=== PATIENT | female | born 1990 | race Caucasian/White ===

== ENCOUNTER 2020-04-11 05:39 | Emergency (ER) | payer BC ==
[2020-04-11 06:19] VITALS: BP 111/58; PULSE 74
[2020-04-11] MEDS ORDERED: Clindamycin HCl 150 MG Cap PO ONE (06:32)
--- NOTE | 2020-04-11 06:39 | EDM.PDOC ---
ED HPI GENERAL MEDICAL PROBLEM - General Chief Complaint: ENT Problem Stated Complaint: INFECTED TOOTH Time Seen by Provider: 04/11/20 06:19 - History of Present Illness INITIAL COMMENTS - FREE TEXT/NARRATIVE: History of present illness: [] Patient has a toothache that was severe week ago. She started amoxicillin and later had Flagyl added. The pain went away. She has swelling now in the left side of the jaw that comes under the left side of the chin and is firm and painful. She has no trismus ptyalism or difficulty with speech. She has no airway embarrassment. She is not . Patient is told that the oral surg cindy in town next her dentist is out of town this week. The patient has no systemic signs of infection. Review of systems: As per history of present illness and below otherwise all systems reviewed and negative. Past medical history: As per history of present illness and as reviewed below otherwise noncontributory. Surgical history: As per history of present illness and as reviewed below otherwise noncontributory. Social history: No reported history of drug or alcohol abuse. Family history: As per history of present illness and as reviewed below otherwise noncontributory. Physical exam: Constitutional - well developed, well-nourished and in no acute distress HEENT - normocephalic, no evidence of trauma - external nose and mouth normal - no mass in neck and no JVD - mucosae moist. No swelling externally from the angle of the left side of the jaw to the anterior part of the left side of the jaw and under same. It is tender. Under the sublingual gland there is no swelling. There is nothing that crosses the midline. The patient has a supple neck. The patient has normal voice and no trismus. EYES - full EOM, PERRL, no icterus - no evidence of inflammation, injection, or drainage Respiratory - no respiratory distress, equal bilateral expansion, lungs clear to auscultation and no abnormal lung sounds Cardiovascular - Regular Rhythm with S1 and S2 appreciated and no murmur, gallop or rub. GI - abdomen soft without distension or organomegaly - normal bowel sounds - no guard or rebound Musculoskeletal no gross deformity of long bones or joints - no tenderness, swelling or edema Neurologic - Alert and oriented times four - CN II-XII grossly intact - motor sensory and coordination symmetrically normal Psychiatric - appropriate mood and affect with normal thought content Hematologic - No petechiae or purpura - mucosa appropriate color and sclera not pale - normal nail bed color and refill Integument - no rash or evidence of trauma - normal turgor Diagnostics: [] Therapeutics: [] Impression: [] Plan: [] Definitive disposition and diagnosis as appropriate pending reevaluation and review of above. Treatments OCEANOLOGIST: Reports: Acetaminophen, Other Medication(s) denies pain at this time Pain Score (Numeric/FACES): 0 - Related Data Allergies Allergy/AdvReac Type Severity Reaction Status Date / Time No Known Allergies Allergy Verified 12/08/14 14:57 Home Meds: Home Meds Amoxicillin 500 mg PO TID 04/11/20 [History] Hydrocodone/Acetaminophen [Hydrocodone-Acetamin 5-325 mg] PRN 04/11/20 [History] clindamycin HCL [Cleocin] 600 mg PO Q8H #30 cap 04/11/20 [Rx] metroNIDAZOLE [Metronidazole] 500 mg PO BID 04/11/20 [History] Past Medical History - Past Health History Medical/Surgical History: Denies Medical/Surgical History Psychiatric History: Reports: None Hematologic History: Reports: None Other Dermatologic History: skin grafts related to MRSA infection - Infectious Disease History Infectious Disease History: Reports: MRSA Social & Family History - Family History Family Medical History: Noncontributory - Tobacco Use Smoking Status *Q: Current Every Day Smoker Years of Tobacco use: 15 Packs/Tins Daily: 0.5 - Caffeine Use Caffeine Use: Reports: Coffee, Soda - Recreational Drug Use Recreational Drug Use: No ED ROS ENT - Review of Systems Review Of Systems: Comprehensive ROS is negative, except as noted in HPI. ED EXAM, ENT - Physical Exam Exam: See Below Text/Narrative:: My physical exam as in my H&P Course - Vital Signs Last Recorded V/S: Last Vital Signs Temp 98.5 F 04/11/20 06:14 Pulse 74 04/11/20 06:14 Resp 18 04/11/20 06:14 BP 111/58 L 04/11/20 06:14 Pulse Ox 98 04/11/20 06:14 - Orders/Labs/Meds Meds: Medications Discontinued Medications Generic Name Dose Route Start Last Admin Trade Name Freq PRN Reason Stop Dose Admin Clindamycin HCl 600 mg 04/11/20 06:32 Cleocin PO 04/11/20 06:33 ONETIME ONE Departure - Departure Time of Disposition: 06:50 Disposition: Home, Self-Care 01 Condition: Good Clinical Impression: Dental infection - Discharge Information Prescriptions: clindamycin HCL [Cleocin] 600 mg PO Q8H #30 cap Instructions: Dental Abscess, [id number] Referrals: Po Marks MD [Primary Care Provider] - Additional Instructions: Call your dentist and tell the dentist you need to see an oral surgeon this week. Return immediately so that we can transfer you to the hospital that has an oral surgeon salon receptionist if the swelling crosses the midline and cause a change in your voice difficulty swallowing or difficulty breathing. [facility] [address] [place] [id number] [facility] [address] [place] [id number] The following information is given to patients seen in the emergency department who are being discharged to home. This information is to outline your options for follow-up care. We provide all patients seen in our emergency department with a follow-up referral. The need for follow-up, as well as the timing and circumstances, are variable depending upon the specifics of your emergency department visit. If you don't have a primary care physician on staff, we will provide you with a referral. We always advise you to contact your personal physician following an emergency department visit to inform them of the circumstance of the visit and for follow-up with them and/or the need for any referrals to a consulting specialist. The emergency department will also refer you to a specialist when appropriate. This referral assures that you have the opportunity for follow-up care with a specialist. All of these measure are taken in an effort to provide you with optimal care, which includes your follow-up. Under all circumstances we always encourage you to contact your private physician who remains a resource for coordinating your care. When calling for follow-up care, please make the office aware that this follow-up is from your recent emergency room visit. If for any reason you are refused follow-up, please contact the [facility] Emergency Department at and asked to speak to the emergency department charge nurse. Sepsis Event Note (ED) - Evaluation Sepsis Screening Result: No Definite Risk - Focused Exam Vital Signs: Vital Signs Temp Pulse Resp BP Pulse Ox 04/11/20 06:14 98.5 F 74 18 111/58 L 98
== END 2020-04-11 07:02 | disposition home or self-care (01) ==
LOC: MW.ED 05:39
DX: K04.7 Periapical abscess without sinus (principal); F17.210 Nicotine dependence, cigarettes, uncomplicated
CPT/HCPCS: 99282; A9270

== ENCOUNTER 2022-08-27 08:58 | Emergency (ER) | payer BC ==
[2022-08-27] MEDS ORDERED: Sodium Chloride 0.9% 10 ML Syringe FLUSH PRN (09:12)
[2022-08-27] MEDS ORDERED: Sodium Chloride 0.9% 2.5 ML Syringe FLUSH PRN (09:12)
[2022-08-27] MEDS ORDERED: Sodium Chloride 0.9% 20 ML SDV IV PRN (09:12)
[2022-08-27 09:57] LABS: CARBON DIOXIDE,CO2 26.8 mmol/L (21.0-32.0); POTASSIUM,K 3.8 mmol/L (3.5-5.1)
[2022-08-27 10:05] LABS: CORONAVIRUS COVID-19 NAA NEGATIVE (NEGATIVE); INFLUENZA A NAA NEGATIVE (NEGATIVE); INFLUENZA B NAA NEGATIVE (NEGATIVE)
[2022-08-27] MEDS ORDERED: Alum Hydro/Mag Hydro/Simeth XS 15 ML, Lidocaine 2% 5 ML PO ONE ×2 (10:58)
[2022-08-27] MEDS ORDERED: Sodium Chloride 0.9% 1,000 ML IV SCH (11:00)
[2022-08-27 12:37] VITALS: BP 93/57; PULSE 64
== END 2022-08-27 12:37 | disposition home or self-care (01) ==
LOC: MW.ED 08:58
DX: R10.13 Epigastric pain (principal); R10.11 Right upper quadrant pain; Z20.822 Contact with and (suspected) exposure to COVID-19
CPT/HCPCS: 0240U; 36415; 76705; 80053; 81003; 81025; 83690; 85025; 96360; 99284; A9270; J3490; J7030